=== PATIENT | male | born 1995 | race Caucasian/White ===

== ENCOUNTER 2018-04-14 17:16 | Emergency (ER) | payer SELFPAY ==
[2018-04-14 17:27] VITALS: BP 129/70; TEMP 98.1; O2SAT 100
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
== END 2018-04-14 18:34 | disposition home or self-care (01) ==
LOC: ER 17:16
DX: N34.2 Other urethritis (principal)

== ENCOUNTER 2018-10-22 07:50 | Emergency (ER) | payer OTHER ==
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
[2018-10-22 14:36] VITALS: BP 137/91; TEMP 98.4; O2SAT 98
== END 2018-10-22 14:34 | disposition home or self-care (01) ==
LOC: ER 07:50
DX: S80.01XA Contusion of right knee, initial encounter (principal); F15.10 Other stimulant abuse, uncomplicated; M79.621 Pain in right upper arm; M25.521 Pain in right elbow; V49.88XA Car occupant (driver) (passenger) injured in other specified transport accidents, initial encounter; Y92.410 Unspecified street and highway as the place of occurrence of the external cause; Z87.891 Personal history of nicotine dependence